=== PATIENT | male | born 1975 ===

== ENCOUNTER 2022-11-24 09:57 | Day surgery (SDC) | payer OTHER ==
[2022-11-24 11:31] VITALS: BMI 42.3
[2022-11-24] MEDS ORDERED: ceFAZolin SODIUM 1 GM VIAL ONE (14:07)
[2022-11-24] MEDS ORDERED: ceFAZolin SODIUM 1 GM VIAL IVPB ONE (14:08)
[2022-11-24 14:58] VITALS: BP 128/73; PULSE 66; RESP 16; TEMP 98.4
== END 2022-11-24 16:10 | disposition home or self-care (01) ==
LOC: JASU-SURG 09:57
PROVIDERS: ATTEND Urology
PROC: 0TF4XZZ Fragmentation in Left Kidney Pelvis, External Approach (ICD-10-PCS; principal; 2022-11-24 12:45)
DX: N20.0 Calculus of kidney (principal)